=== PATIENT | female | born 1960 | race Two or more races ===

== ENCOUNTER → 2020-01-27 | Outpatient (CLI) | payer OTHER ==
[~2020-01-27] VITALS: Ht 162.6 cm; Wt 74.4 kg
[~2020-01-27] MED LIST: HYDROCHLOROTH12.5 MG; LOSARTAN POTASS50 MG; LUNESTA1 MG
== END | disposition home or self-care (01) ==
LOC: OFIC 805 09:30
PROVIDERS: ATTEND Otolaryngology Otology & Neurotology
DX: J30.89 Other allergic rhinitis (principal); R09.81 Nasal congestion; H93.11 Tinnitus, right ear; H91.8X3 Other specified hearing loss, bilateral; R42 Dizziness and giddiness